=== PATIENT | female | born 2000 | race Caucasian/White ===

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

== ENCOUNTER 2018-04-15 09:23 | Emergency (ER) | payer OTHER, SELFPAY ==
[2018-04-15 09:24] VITALS: BP 126/72; PULSE 99; RESP 16; TEMP 36.9; O2SAT 98; BMI 17.1
--- NOTE | 2018-04-15 09:30 | NURSING ---
NO OLD EKGS
--- NOTE | 2018-04-15 09:44 | EKG12_ITS ---
Test Reason : SYNCOPE Blood Pressure : / mmHG Vent. Rate : 070 BPM Atrial Rate : 070 BPM P-R Int : 130 ms QRS Dur : 078 ms QT Int : 368 ms P-R-T Axes : 063 050 040 degrees QTc Int : 397 ms Normal sinus rhythm with sinus arrhythmia Confirmed by SHANAE FARLEY, YANIRA ([id number]), marketing editor BOLA BUNCH (54 on 04/17/2018 1:52:32 PM Referred By: Reynaldo Harding Confirmed By:YANIRA JOLLY MD
--- NOTE | 2018-04-15 09:49 | NURSING ---
NO OLD EKGS
[2018-04-15 10:12] LABS: Mucous, Urine 0 SEEN /hpf (<or=2+)
[2018-04-15 10:22] LABS: Internal QC Validated? YES +Cl - CLEAR BKGD; Pregnancy, Urine Negative Negative
[2018-04-15 10:29] LABS: Color, Urine Yellow (Yellow); Glucose, Dipstick Normal (Normal); Ketone-Dipstick 5 mg/dl (Negative); Leukocyte Esterase-Dipstick 500 /ul (Negative); Nitrite-Dipstick Negative (Negative); Occult Blood-Urine 50 /ul (Negative); Protein-Dipstick 30 mg/dl (Negative); Specific Gravity, Urine 1.025 (1.002-1.030); Urine Bilirubin Dipstick Negative (Negative); Urine Clarity Sl. Cloudy (Clear); Urine Urobilinogen 1 mg/dl (Normal)
[2018-04-15 10:36] LABS: Absolute Lymphocyte Count 1.22 X10^3/ul (0.83-4.51); Absolute Neutrophil Count 7.5 X10^3/uL (2.0-7.7); Basophil# 0.02 X10^3/uL; Basophil% 0.2 % (0-1); Eosinophil# 0.16 X10^3/uL; Eosinophils% 1.7 % (0-5); Hematocrit 39.9 % (37-47); Lymphocyte # 1.22 X10^3/ul (4.0); Lymphocyte % 12.6 % (19-41); Mean Corp Hgb Conc 32.6 g/gl (32-36); Mean Platelet Vol. 9.4 fl (6.2-12.0); Monocyte# 0.75 X10^3/uL; Monocyte% 7.7 % (0-10); Neutrophil # 7.52 X10^3/uL (2.7-7.7); Neutrophil % 77.6 % (47-70); Platelet Count 314 K/mm3 (150-450); RBC Distribution Width CV 13.2 % (11.6-14.6); RBC Distribution Width SD 41.6 fl (35.1-43.9); Red Blood Count 4.64 M/mm3 (4.2-5.4); White Blood Count 9.7 K/mm3 (4.4-11.0)
[2018-04-15 10:39] LABS: POSITIVE COUNT NO; POSITIVE DIFFERENTIAL NO; POSITIVE MORPHOLOGY NO
[2018-04-15 10:42] LABS: Bacteria 1+ /hpf (None Seen); Red Blood Cells-Urine 0-5 SEEN /hpf (0-5); Squamous Epithelial Cells - UA 5-10 SEEN /hpf (5-10); White Blood Cells 25-50 SEEN /hpf (0-5)
[2018-04-15 11:00] LABS: Anion Gap 9 (5-15); BUN 9 mg/dL (7-18); BUN/Creat Ratio 13.5 RATIO (10-20); Calcium,Total 8.7 mg/dL (8.5-10.1); Chloride 107 mmol/L (98-107); Creatinine, Serum 0.67 mg/dL (0.55-1.02); EST Glomerular Filtration Rate 120 mL/min (>60); Est Glom Filt Rate - Afr Amer 145 mL/min (>60); Estimated Creatinine Clearance 84.86 ml/min; Glucose 93 mg/dL (74-106); Sodium Level 141 mmol/L (136-145)
--- NOTE | 2018-04-15 12:16 | ED.VISSUMM ---
- ER Visit Summary Date of Service: 04/15/18 Chief Complaint: Syncope History of Present Illness: The patient is a 17 F presenting for evaluation secondary to syncope. Patient reports that yesterday she was standing in line to get some food, and she had a sudden syncopal episode. Patient reports that just prior to passing out she felt lightheaded but she denies any other prodrome such as visual changes numbness weakness chest pain shortness of breath or unilateral arm twitching. Patient reports that she was out for a minute and then had immediate return of consciousness. Patient states that she is never really had any prior similar episodes in the past. Patient states that she has been dealing with some sinus congestion and cough over the course of the last week but denies any presence of fevers or shortness of breath. Patient denies any personal or family history of cardiac arrhythmias. She denies any DVT or PE risk factors. Last menstrual cycle was on 04/07. Physical Examination: Vital signs are within normal limits, patient is afebrile. General: Patient is well-nourished well-developed and in no acute distress. Head: Normocephalic, atraumatic Eyes: Pupils equal round and reactive bilaterally, extra occular motion intact bialterally ENT: Moist mucous membranes Neck: Supple, no lymphadenopathy, no JVD, no meningismus CVS: Heart regular rate and rhythm, no murmurs, rubs or gallops, radial pulses 2+ bilaterally Resp: Respirations nondistressed, lung sounds clear bilaterally Abdomen: Soft, nontender, nondistended, no palpable masses, normal bowel sounds Back: Nontender Extremities: Nontender, atraumatic, active full range of motion, no peripheral edema Skin: warm, no rashes, no petechia Neuro: Alert and oriented x 4, CN 2-12 intact, no lateralizing neurological defecits Psyc: Normal affect Test Results: EKG shows sinus rhythm at 70 with normal intervals, isoelectric ST segments normal T waves, no evidence of WPW or Brugada morphology. CBC chemistry unremarkable, urinalysis shows evidence of potentially a mild UTI and test was found to be negative Emergency Department Course and Treatment: Patient presented for evaluation secondary to a syncopal episode. Workup was negative except for leukocytes in the urine as noted above. Patient is Lynden syncope negative I do not believe that she requires admission. She will follow-up with her primary care physician. She will be placed on a short course of Macrobid for her UTI. Disposition: Discharge Impression: 1. Syncope 2. Urinary tract infection This note was generated with [employer] dictation software. It may contain incorrect words, spelling, and punctuation that were not noted in review of the chart prior to signing ED Disposition - Plan for ED Patient: Disposition: Home or Assisted Living Chief Complaint: Syncope Diagnosis: Syncope, UTI (urinary tract infection) Instructions: ED Fainting Unkn Cause, ED UTI Cystitis Female Prescriptions: Nitrofurantoin Macrocrystals [Macrobid] 100 mg PO Q12 #6 cap Referrals: Neil Thurston DO [Primary Care Provider] - 1 Week
[2018-04-15 12:39] VITALS: BP 124/69; PULSE 62; RESP 16; O2SAT 98
--- NOTE | 2018-04-15 12:40 | ED.RN ---
REVIEWED D/C INSTRUCTIONS, FOLLOW UP CARE, PRESCRIPTION, AND S/S THAT WOULD WARRANT A RETURN TO THE ED WITH PT. PT VERBALIZED AN UNDERSTANDING AND DENIES FURTHER QUESTIONS FOR THIS RN. PT SKIN P/W/D, RESP EVEN AND UNLABORED, PT A&O X 3, NO DISTRESS NOTED. PT AMBULATED OUT OF ED, GAIT STEADY.
== END 2018-04-15 12:41 | disposition home or self-care (01) ==
PROVIDERS: Emergency Provider Emergency Medicine; Family Provider Family Medicine; PCP Family Medicine; Referring Provider Emergency Medicine
DX: R55 Syncope and collapse (principal); N39.0 Urinary tract infection, site not specified; B96.89 Other specified bacterial agents as the cause of diseases classified elsewhere
CPT/HCPCS: 36415; 80048; 81001; 81025; 84484; 85025; 93005; 99282